=== PATIENT | male | born 1960 | race Caucasian/White ===

== ENCOUNTER 2019-10-25 15:58 | Outpatient (CLI) | payer SELFPAY | END 2019-10-25 15:59 | disposition home or self-care (01) | LOC: SPT 15:58 | PROVIDERS: Visit Provider Orthopaedic Surgery | DX: Z46.89 Encounter for fitting and adjustment of other specified devices (principal); S52.501D Unspecified fracture of the lower end of right radius, subsequent encounter for closed fracture with routine healing; X58.XXXD Exposure to other specified factors, subsequent encounter | CPT/HCPCS: L3908 ==

== ENCOUNTER 2024-06-20 11:52 | Inpatient (IN) | payer SELFPAY ==
[2024-06-20] VITALS (38 sets, daily range): BP systolic 93–143; BP diastolic 64–91; PULSE 58–87; RESP 14–25; TEMP 36.3–37; O2SAT 94–100; BMI 27.4
--- NOTE | 2024-06-20 12:00 | ECG_ITS ---
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1960 Requested By: Fransisco Booth Order Number: [id number] Reading MD: KATLIN ALBERTO Measurements Intervals [place] Rate: 63 P: 39 ME: 148 QRS: 25 QRSD: 89 T: -26 QT: 393 QTc: 404 Interpretive Statements SINUS RHYTHM WITH OCCASIONAL SUPRAVENTRICULAR PREMATURE COMPLEXES INFERIOR MYOCARDIAL INFARCTION , PROBABLY RECENT [40+ ms Q WAVE AND/OR ST/T ABNORMALITY IN II/aVF] ACUTE OK INTERPRETATION BASED ON A DEFAULT AGE OF 40 YEARS No previous ECG available for comparison Electronically Signed On 06-27-2024 21:03:00 CDT by KATLIN ALBERTO [email or web address]
--- NOTE | 2024-06-20 12:04 | XR_ITS ---
WS: [id number] Exam: XR chest 1V portable [id number] Date/Time of Exam: 06/20/2024 12:35 PM Reason For Exam: Chest pain Lungs are clear. Normal cardiomediastinal silhouette. Bony structures are intact. No pleural effusion. Monitoring leads superimpose the chest. XR/XR chest 1V portable [id number] IMPRESSION: 1. Negative chest.
[2024-06-20] MEDS: clopidogrel 300 mg Tablet 600 MG PO (12:10)
[2024-06-20] MEDS: heparin 5,000 unit/mL INJ 1 mL 4000 UNIT IVP (12:10)
[2024-06-20] MEDS: aspirin 325 mg Tablet PO (12:10)
--- NOTE | 2024-06-20 12:16 | ED_ITS ---
HPI - Chest Pain 2 General: Stated Complaint: cp pain and arm pain Time Seen by Provider: 06/20/24 12:03 History of Present Illness: 63-year-old male presents to the emergen cy room with complaint of severe central substernal chest pain radiating to his right arm. He was at rest when this began. He states he has had several episodes like this in the last month that usually resolve spontaneously this 1 began a few hours ago and is persisting. Patient has no known coronary artery disease he is not diabetic does not smoke. No previous evaluation for coronary artery disease. Associated symptoms: Reports diaphoresis and dyspnea; Deny abdominal pain or fever(s) Related Data Allergies Allergy/AdvReac Type Severity Reaction Status Date / Time No Known Allergies Allergy Verified 06/20/24 12:18 Review of Systems 2 Const: Reports: malaise and diaphoresis; Denies: fever(s) or chills Card: Reports: chest pain Resp: Reports: dyspnea GI: Denies: abdominal pain : Denies: dysuria, urinary frequency or urinary urgency Musc: Denies: neck pain or back pain Skin/Breast: Denies: rash Physical Exam 2 Const: GENERAL APPEARANCE: cooperative ORIENTATION/CONSCIOUSNESS: Yes awake, Yes oriented to person, Yes oriented to place and Yes oriented to time HENMT: COMMON NORMALS: normocephalic, atraumatic and hearing grossly normal bilaterally HEAD & SCALP: normocephalic and atraumatic Resp: COMMON NORMALS: normal respiratory effort, No retractions, No use of accessory muscles and clear to auscultation bilaterally AUSCULTATION: clear to auscultation bilaterally Cardio: COMMON NORMALS: regular rate, regular rhythm and No murmurs present (Cardio) RATE: regular rate RHYTHM: regular rhythm GI: COMMON NORMALS: Soft to palpation and No hepatosplenomegaly present A USCULTATION: Yes normoactive bowel sounds PALPATION: Yes Soft to palpation, No Tenderness to palpation present (GI), No Guarding due to palpation present (GI) and Yes No hepatosplenomegaly present Extremity: COMMON NORMALS: normal to inspection, capillary refill normal, no clubbing, cyanosis or edema, no calf tenderness and no pedal edema Neuro: SENSORIUM/ORIENTATION: Yes oriented to person, Yes oriented to place and Yes oriented to time Skin: COMMON NORMALS: no rashes or lesions noted GENERAL SKIN EXAM: no rashes or lesions noted MDM - Chest Pain Medical Decision Making EKG shows acute inferior STEMI with some lateral changes at elevation of ST segments in V4 5 and 6 as well as 2 3 and aVF. STEMI was called immediately upon reviewing the EKG patient brought to the room. He is still actively having chest pain shortly after he arrived however still establishing IV access and getting his initial medications including aspirin Plavix and heparin Dr. Ball arrived he concurs with the interpretation of the EKG patient was taken directly to the Cash Processing Specialist. Medical Records I reviewed the patient's medical records. Lab Data I reviewed the patient's lab results. 06/20/24 12:12 06/20/24 12:12 XR interpretation done by ED provider, pending radiology final review (Chest x- ray ordered but not performed will be performed later in visit) Discharge Plan Discharge Patient Disposition: Admitted As Inpatient Clinical Impression: Subsequent ST elevation (STEMI) myocardial infarction of inferior wall Condition: Stable Print Language: Colombian Coding Level of Care Code ED Chief Of Safety And Protection for Morgan Franklin
[2024-06-20 12:19] LABS: Basophils # 0.1 10^3/uL (0.0-0.1); Basophils % 0.4 %; Eosinophils # 0.3 10^3/uL (0.0-0.8); Eosinophils % 1.4 %; Hematocrit 45.8 % (37-53); Lymphocytes # 2.5 10^3/uL (0.8-4.8); Lymphocytes % 11.6 %; Mean Corpuscular HGB Conc 33.4 g/dL (30-55); Mean Corpuscular Hemoglobin 29.2 pg (27-33); Mean Corpuscular Volume 87.4 fl (82-101); Mean Platelet Volume 9.8 fL (7.4-10.4); Monocytes # 1.1 10^3/uL (0.2-0.9); Monocytes % 5.1 %; Neutrophils # 17.43 10^3/uL (1.8-7.7); Nucleated Red Blood Cells % 0 %; Platelet Count 331 10^3/cmm (157-399); Red Blood Count 5.24 10^6/uL (3.85-5.65); Red Cell Distribution Width 12.7 % (12.1-15.1)
[2024-06-20 12:35] LABS: Alanine Aminotransferase 15 U/L (0-41); Albumin Level 4.8 g/dL (3.5-5.2); Alkaline Phosphatase 62 U/L (40-130); Anion Gap 15.2 (5-19); Aspartate Amino Transferase 18 U/L (0-40); Blood Urea Nitrogen 11 mg/dL (8-23); Calcium 9.4 mg/dL (8.5-10.5); Carbon Dioxide 26 mmol/L (22-29); Chloride 99 mmol/L (98-107); Globulin 3.4 g/dL (1.3-4.6); Glomerular Filtration Rate 85.8 mL/min (90-130); Glucose 124 mg/dL (65-115); Osmolality Calculated 283 mOsm/kg (285-295); Potassium 4.2 mmol/L (3.5-5.1); Sodium 136 mmol/L (136-145); Total Bilirubin 0.4 mg/dL (0.15-1.2); Total Protein 8.2 g/dL (6.6-8.7)
--- NOTE | 2024-06-20 13:04 | PC.NURSE ---
PT taken to brick and blocker aid labor @[id number]
--- NOTE | 2024-06-20 13:09 | P.HP_ITS ---
<Statement entered by Kian Ball M.D - 06/22/24 08:06> Patient was evaluated and cared for in conjunction with an advanced practice practitioner.? I personally examined the patient and reviewed the chart and all pertinent data including imaging, telemetry, and laboratory results.? I discussed the patient in detail with the advanced practice practitioner.? Please see? their note for complete H&P, testing results and agreed upon plan of care for the patient. Patient has presented with a STEMI and going for emergent cardiac catheterization. GENERAL: Patient is alert, awake and oriented x3. HEART: Regular S1 and S2 LUNGS: Clear to auscultate bilaterally. CENTRAL NERVOUS SYSTEM: Grossly nonfocal. EXTREMITIES: Lower extremities with out edema bilaterally. Providers/Chief Complaint 2 Admitting Physician: Dr. Ball Chief Complaint: cp pain and arm pain History of Present Illness Laz Good is a 63 year old male who has no known cardiac history, no diabetes or hypertension per patient, never smoker, and does not take medications at home. He states he does not ever go to the doctor. He came to the ER today with complaints of severe central substernal chest pain that was radiating to his right arm. He stated at the time he had nausea, vomiting, and severe sweating with this. He states this had been going on for at least a month, but the pain would go away at that time. He attributed this pain at the time to anxiety. He stated that he came in because the pain started a few hours prior to arrival and was persisting. EKG showed acute inferior wall STEMI. STEMI was called immediately. He was taken to the slab puller and underwent stenting of the RCA. BLood pressure were low, so he was placed on Levophed drip. He will need to be transferred to the ICU for this. He received Plavix 600 mg, aspirin, heparin bolus prior to being taken to the slab puller. Review of Systems 2 Narrative: CONSTITUTIONAL: No fever chills weight loss or gain or night sweats. HEENT: Normocephalic, atraumatic. RESPIRATORY: No cough, sputum, hemoptysis or wheezing. CARDIOVASCULAR: No shortness of breath, reported chest pain at the center of his chest radiating to the right arm at this time post cath still has chest pressure at the center of his chest, he had this during the cath and after, denies PND, orthopnea, lower extremity edema, presyncope or syncope. GI: no nausea vomiting diarrhea. MANAGER COSMETIC: No numbness, tingling, weakness or loss of function in any part of the body. MUSCULOSKELETAL: Denies any issues. Medications/Allergies Home Medications ?Medication ?Instructions ?Recorded ?Confirmed ?Last Taken ?Type Unable to Assess 06/20/24 06/20/24 Unkn own History Allergies Allergy/AdvReac Type Severity Reaction Status Date / Time No Known Allergies Allergy Verified 06/20/24 12:18 Vitals/I&O/Wt Last Vital Signs Temp 97.3 F L 06/20/24 11:55 Pulse 74 06/20/24 11:55 BP 143/89 06/20/24 11:55 Pulse Ox 100 06/20/24 11:55 O2 Del Method Room Air 06/20/24 11:55 Weight last 48 hrs Weight 174 lb Physical Exam 2 Narrative: General: No apparent distress, healthy appearing, well nourished HENMT: normoceophalic Neck: No carotid bruit bilaterally Muskuloskeletal: Full ROM Respiratory: Normal respiratory effort, clear to auscultation bilaterally throughout all lung [place], no use of accessory muscles Cardio: No JVD, regular rate, regular rhythm, S1 S2 normal, no murmurs, peripheral pulses 2+ radial on the left, TR band on the right w/o evidence of bleeding or hematoma GI: Normal to inspection, nondistended Extremities: Full ROM, normal, normal capillary refill, no cyanosis or edema Neuro: Alert and oriented x4, no focal motor deficits Psych: Affect normal, mental status grossly normal Skin: radial cath site clean, dry, intact w/o s/s of hematoma or bleeding Data 06/20/24 12:12 06/20/24 12:12 A&P Assessment and plan (1) Subsequent ST elevation (STEMI) myocardial infarction of inferior wall: Plan Patient taken to the slab puller for acute inferior wall STEMI. He received stenting to the RCA which is the culprit lesion. He will be transferred to the ICU due to patient is hypotensive requiring Levophed administration. Continue aspirin Plavix tomorrow with high-dose statin therapy add atorvastatin 80 mg. Echo complete will be ordered. PDMP PDMP Reviewed: Not Reviewed Attestations 2 Medical Necessity Statement*: Patient stay expected to cross 2 midnights due to acute inferior STEMI requiring stenting to the RCA, levo for blood pressure support. Coding Level of Care Code Acute Code for Chg Fwd Diagnoses Subsequent ST elevation (STEMI) myocardial infarction of inferior wall I22.1
--- NOTE | 2024-06-20 13:41 | W.PM.OPSUD ---
Surgery/Procedure H&P Update DATE OF PROCEDURE: June 20, 2024 DATE H&P PERFORMED: 06/20/24 H&P UPDATE INFORMATION: I have reviewed H&P completed within last 30 days, I have examined patient prior to procedure and No changes to prior documentation PREOP DIAGNOSIS: STEMI PRIMARY INDICATION FOR PROCEDURE: STEMI PLANNED PROCEDURE: Operation Date: 06/20/24 12:25 Proposed Procedures p Cardiac Catheterization(Not Applicable) - Kian Ball M.D Percutaneous coronary intervention PATIENT REASSESSED PRIOR TO SEDATION, WITH NO CHANGE NOTED: Yes PHYSICAL EXAM: alert, oriented x 3, clear to auscultation bilaterally and regular rate & rhythm AIRWAY EVAL/ANESTHESIA PLAN: normal airway, ASA III, Local Anesthesia, Risks, benefits & alternatives of sedation and/or procedure discussed and Patient agrees to continue as planned ADDITIONAL INFORMATION: Moderate sedation
--- NOTE | 2024-06-20 13:42 | PC.NURSE ---
received pt from grinding and polishing laborer post [facility]. pt alert and oriented x4. pt does complain of pain- 8 out of 10. pt educated on the pain potential from the procedure. pt stated understanding. tr band on right wrist with no hematoma or bruising on arrival. pt awaiting transfer to icu. pt educated on restrictions of right wrist. pt stated understanding. will continue to evaluate pt per protocol.
--- NOTE | 2024-06-20 13:42 | PM.PROC ---
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 RCA has severe stenosis in the proximal vessel with plaque rupture. Thrombotic occlusion of distal vessel. Underwent successful revascularization with 1 stent from proximal to mid RCA. Balloon angioplasty of the distal vessel done. Had distal embolization of thrombus. We will continue with aspirin and Plavix. We will continue with Aggrastat for 6 to 8 hours. High intensity statin therapy. Currently requiring Levophed. However blood pressure is improving. Will wean off as able in the ICU. Performing Provider: Kian Ball Estimated blood loss (mL): 10 Complications: None Condition: critical Disposition: ICU Coding Level of Care Code Acute Code for Morgan Franklin
[2024-06-20] MEDS: tirofiban 5 MG/100 ML PREMIX 14.3 MG IV ×2 (14:00→16:19)
[2024-06-20] MEDS: norepinephrine 4 MG/250 ML BAG 30 MG IV (15:35)
--- NOTE | 2024-06-20 16:06 | USCV_ITS ---
Laz Good Age: 63 Gender: M : 1960 Exam Date: 06/20/2024 20:05 Ordering Phys: Leona Smith NP Technologist: PREM [place] [facility] [place]: [place] BP: 128 / 84 HR: 62 Rhythm: Sinus Technical Quality: Adequate MEASUREMENTS (Male / Female) Normal Values 2D ECHO LV Diastolic Diameter PLAX 3.3 cm 4.2 - 5.9 / 3.9 - 5.3 cm IVS Diastolic Thickness 1.2 cm 0.6 - 1.0 / 0.6 - 0.9 cm IVS Systolic Thickness 1.6 cm LVPW Diastolic Thickness 1.1 cm 0.6 - 1.0 / 0.6 - 0.9 cm LVPW Systolic Thickness 1.3 cm LVOT Diameter 1.7 cm LV Ejection Fraction 2D Teich 40.8 % LV Ejection Fraction MOD 4C 42.1 % LV Ejection Fraction MOD 2C 68.9 % LV Ejection Fraction 2C AL 70.4 % LA Diameter 3.2 cm Aorta at Sinotubular Diameter 2.6 cm IVC Diameter 2.0 cm M-MODE LA Ao Ratio MM 1.2 AV Cusp Separation MM 2.0 cm DOPPLER AV Peak Velocity 143.0 cm/s LVOT Peak Velocity 139.0 cm/s AV Area Cont Eq vti 1.9 cm squared AV Area Cont Eq pk 2.1 cm squared MV Peak Velocity 79.0 cm/s MV Area PHT 5.3 cm squared Mitral E to A Ratio 1.1 TR Peak Velocity 170.0 cm/s TR Peak Gradient 11.6 mmHg TV Peak E Velocity 40.0 cm/s PV Peak Velocity 89.0 cm/s FINDINGS Left Ventricle Normal left ventricular size and systolic function, EF 50%, visual. Diffuse hypokinesia of the inferolateral wall segment Right Ventricle The right ventricle is normal in size and function. Right Atrium The right atrium is normal in size. Left Atrium The left atrium is normal in size. Mitral Valve Mild mitral valve regurgitation. Aortic Valve Minimally thickened aortic valve Tricuspid Valve Trace tricuspid valve regurgitation. Estimated pulmonary artery peak systolic pressure within normal limits Pulmonic Valve No gross abnormalities noted Pericardium Normal pericardium without effusion. Aorta Normal ascending aorta dimension. IVC Normal IVC dimension with <50% respiratory change of the inferior vena cava. CONCLUSIONS Normal left ventricular size and systolic function, EF 50%, visual. Diffuse hypokinesia of the inferolateral wall segment. Mild mitral valve regurgitation. Minimally thickened aortic valve. Trace tricuspid valve regurgitation. Estimated pulmonary artery peak systolic pressure within normal limits. There is no pericardial effusion. There are no intracardiac masses. No similar previous studies are available for comparison Dr Dileep Thao MD FACC (Electronically Signed) Final Date: 21 June 2024 13:29 S
[2024-06-20 16:34] LABS: Chol HDL Ratio 5.24 mg/dL (1.0-5.00); Cholesterol 241 mg/dL (0-200); HDL Cholesterol 46 mg/dL (60-100); LDL Cholesterol Calculated 160 mg/dL (50-129); LDL HDL Ratio 3.48 RATIO (0.00-3.22); Triglycerides 177 mg/dL (0-150)
[2024-06-20 16:39] LABS: Estmated Average Glucose 123; Hemoglobin A1C 5.9 % (4.0-6.0)
--- NOTE | 2024-06-20 19:00 | PC.NURSE ---
TR band removed. Slight bruising noted in area. No hematoma or bleeding noted. Bioclusive dressing applied. Pt tolerated well.
[2024-06-20] MEDS: atorvastatin 40 mg Tablet 80 MG PO (21:09)
[2024-06-21] VITALS (97 sets, daily range): BP systolic 76–137; BP diastolic 42–85; PULSE 54–79; RESP 7–31; TEMP 36.6–37; O2SAT 92–97
[2024-06-21 00:30] LABS: Potassium 4.2 mmol/L (3.5-5.1)
[2024-06-21] MEDS: norepinephrine 4 MG/250 ML BAG 7.5 MG IV (02:14)
[2024-06-21 06:26] LABS: Alanine Aminotransferase 47 U/L (0-41); Albumin Level 3.9 g/dL (3.5-5.2); Alkaline Phosphatase 49 U/L (40-130); Anion Gap 17.1 (5-19); Aspartate Amino Transferase 197 U/L (0-40); Blood Urea Nitrogen 12 mg/dL (8-23); Calcium 8.4 mg/dL (8.5-10.5); Carbon Dioxide 23 mmol/L (22-29); Chloride 104 mmol/L (98-107); Creatinine Clr Calc Pharmacy 97.9924; Globulin 2.8 g/dL (1.3-4.6); Glomerular Filtration Rate 98.3 mL/min (90-130); Glucose 113 mg/dL (65-115); Osmolality Calculated 291 mOsm/kg (285-295); Potassium 4.1 mmol/L (3.5-5.1); Sodium 140 mmol/L (136-145); Total Bilirubin 0.7 mg/dL (0.15-1.2); Total Protein 6.7 g/dL (6.6-8.7)
[2024-06-21] MEDS: clopidogrel 75 mg Tablet PO (08:12)
[2024-06-21] MEDS: aspirin 81 mg EC Tablet PO (08:12)
[2024-06-21 08:28] LABS: Troponin T (5th) Once 5704 ng/L (0-15)
--- NOTE | 2024-06-21 09:24 | P.PN_ITS ---
<Statement entered by Kian Ball M.D - 06/22/24 08:10> Patient was evaluated and cared for in conjunction with an advanced practice practitioner.? I personally examined the patient and reviewed the chart and all pertinent data including imaging, telemetry, and laboratory results.? I discussed the patient in detail with the advanced practice practitioner.? Please see? their note for complete progress note, testing results and agreed upon plan of care for the patient. Chest pain-free. He is off of Levophed. Will observe patient in the hospital. If blood pressure improves, can consider low-dose beta-megha. Continue aspirin and Plavix. Continue high intensity statin therapy. GENERAL: Patient is alert, awake and oriented x3. HEART: Regular S1 and S2 LUNGS: Clear to auscultate bilaterally. CENTRAL NERVOUS SYSTEM: Grossly nonfocal. EXTREMITIES: Lower extremities with out edema bilaterally. Subjective 2 Subjective: Patient is doing well this morning. He denies any chest pain at this time. He did have about a 19 run of V. tach at 8 PM last night. He is currently off of the Levophed. Blood pressure on my assessment was 99/65 heart rate of 56. Echo was performed but official readings are not back yet. He continues aspirin and Plavix as well as high-dose atorvastatin. Vitals/I&O/Wt Last Vital Signs Temp 97.9 F 06/21/24 04:00 Pulse 56 L 06/21/24 06:00 Resp 21 H 06/21/24 06:00 BP 99/65 06/21/24 05:00 Pulse Ox 94 06/21/24 06:00 O2 Del Method Room Air 06/21/24 06:00 06/20/24 06/21/24 06/21/24 22:59 06:59 14:59 Intake Total 228.938 / 228.938 251.187 / 480.125 Balance 228.938 / 228.938 251.187 / 480.125 Weight last 48 hrs Weight 174 lb 2.643 oz Weight 175 lb 3.2 oz Weight 174 lb Physical Exam 2 Narrative: General: No apparent distress, healthy appearing, well nourished HENMT: normoceophalic Muskuloskeletal: Full ROM Respiratory: Normal respiratory effort, clear to auscultation bilaterally throughout all lung [place], no use of accessory muscles Cardio: No JVD, regular rate, regular rhythm, S1 S2 normal, no murmurs, peripheral pulses 2+ radial on the left, 2+ radial on the right GI: Normal to inspection, nondistended Extremities: Full ROM, normal, normal capillary refill, no cyanosis or edema Neuro: Alert and oriented x4, no focal motor deficits Psych: Affect normal, mental status grossly normal Skin: radial cath site clean, dry, intact w/o s/s of hematoma or bleeding Data 06/20/24 12:12 06/21/24 04:44 A&P Assessment and plan (1) Subsequent ST elevation (STEMI) myocardial infarction of inferior wall: Plan Patient s/p stenting to the RCA. We will continue to watch him in the ICU for hypotension or arrhythmias. Will check back around noon, and if patient can tolerate, will add low dose beta megha. Continue aspirin Plavix with high-dose statin therapy add atorvastatin 80 mg. Echo complete done but not officially read. PDMP PDMP Reviewed: Not Reviewed Attestations 2 Medical Necessity Statement*: Patient stay expected to cross 2 midnights due to the above defined care. Coding Level of Care Code Acute Code for Chg Fwd Diagnoses Subsequent ST elevation (STEMI) myocardial infarction of inferior wall I22.1
[2024-06-21] MEDS: atorvastatin 40 mg Tablet 80 MG PO (20:56)
[2024-06-22] VITALS (43 sets, daily range): BP systolic 81–126; BP diastolic 48–74; PULSE 59–86; RESP 17–25; TEMP 36.8; O2SAT 92–96
[2024-06-22 08:13] LABS: Basophils % 0.4 %; Eosinophils # 0.1 10^3/uL (0.0-0.8); Eosinophils % 1.3 %; Hematocrit 40.7 % (37-53); Lymphocytes # 1.8 10^3/uL (0.8-4.8); Lymphocytes % 17.8 %; Mean Corpuscular HGB Conc 32.4 g/dL (30-55); Mean Corpuscular Hemoglobin 28.8 pg (27-33); Mean Corpuscular Volume 88.9 fl (82-101); Mean Platelet Volume 10.1 fL (7.4-10.4); Monocytes % 9.3 %; Neutrophils # 7.21 10^3/uL (1.8-7.7); Neutrophils % 70.8 %; Nucleated Red Blood Cells % 0 %; Platelet Count 236 10^3/cmm (157-399); Red Blood Count 4.58 10^6/uL (3.85-5.65); Red Cell Distribution Width 13.1 % (12.1-15.1); White Blood Count 10.18 10^3/uL (3.29-11.43)
[2024-06-22 08:32] LABS: Anion Gap 13.5 (5-19); Blood Urea Nitrogen 13 mg/dL (8-23); Calcium 8.7 mg/dL (8.5-10.5); Carbon Dioxide 25 mmol/L (22-29); Chloride 103 mmol/L (98-107); Creatinine Clr Calc Pharmacy 97.4202; Glomerular Filtration Rate 98.3 mL/min (90-130); Glucose 90 mg/dL (65-115); Osmolality Calculated 284 mOsm/kg (285-295); Potassium 4.5 mmol/L (3.5-5.1); Sodium 137 mmol/L (136-145)
--- NOTE | 2024-06-22 09:19 | PM.DCS ---
Discharge Providers Date of Admission: 06/20/24 13:54 Date of Discharge: June 22, 2024 Attending Provider at Admission: Kian Ball M.D Attending Provider at Discharge: Kian Ball M.D Diagnoses at Discharge Discharge Diagnosis (1) Subsequent ST elevation (STEMI) myocardial infarction of inferior wall: Status: Acute Reason for Visit Reason for Visit: cp pain and arm pain Brief History: Laz Good is a 63 year old male who has no known cardiac history, no diabetes or hypertension per patient, never smoker, and does not take medications at home. He states he does not ever go to the doctor. He came to the ER today with complaints of severe central substernal chest pain that was radiating to his right arm. He stated at the time he had nausea, vomiting, and severe sweating with this. He states this had been going on for at least a month, but the pain would go away at that time. He attributed this pain at the time to anxiety. He stated that he came in because the pain started a few hours prior to arrival and was persisting. EKG showed acute inferior wall STEMI. STEMI was called immediately. He was taken to the radiographer cardiac catheterization and underwent stenting of the RCA. BLood pressure were low, so he was placed on Levophed drip. He will need to be transferred to the ICU for this. He received Plavix 600 mg, aspirin, heparin bolus prior to being taken to the radiographer cardiac catheterization. Hospital Course Hospital Course He was taken to the radiographer cardiac catheterization. 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 RCA has severe stenosis in the proximal vessel with plaque rupture. Thrombotic occlusion of distal vessel. Underwent successful revascularization with 1 stent from proximal to mid RCA. Balloon angioplasty of the distal vessel done. Had distal embolization of thrombus. He was placed on Levophed drip temporarily for hypotension. This resolved prior to discharge. Echo was done that showed EF of 50% with diffuse hypokinesia of the inferolateral wall segment. Patient did have a couple of episodes of nonsustained VTAC. He denies cheat pain on discharge. He will be going home in stable to improved condition. Physical Exam Narrative: General: No apparent distress, healthy appearing, well nourished HENMT: normoceophalic Muskuloskeletal: Full ROM Respiratory: Normal respiratory effort, clear to auscultation bilaterally throughout all lung [place], no use of accessory muscles Cardio: No JVD, regular rate, regular rhythm, S1 S2 normal, no murmurs, peripheral pulses 2+ radial on the left, 2+ radial on the right GI: Normal to inspection, nondistended Extremities: Full ROM, normal, normal capillary refill, no cyanosis or edema Neuro: Alert and oriented x4, no focal motor deficits Psych: Affect normal, mental status grossly normal Skin: radial cath site clean, dry, intact w/o s/s of hematoma or bleeding Discharge Data Studies Completed and Pending Completed Studies During Hospitalization Category Date Time Status XR chest 1V portable [id number] Stat Exams 06/20/24 12:04 Completed CV. echo complete* [id number] Routine Ultrasound 06/20/24 16:06 Completed Pending at discharge Category Date Time Status [employer] [facility] request for service Stat Exams 06/20/24 12:11 Taken Radiology Impressions Chest X-Ray 06/20/24 12:04 IMPRESSION: 1. Negative chest. Laboratory Results WBC 10.18 10^3/uL (3.29-11.43) 06/22/24 08:07 RBC 4.58 10^6/uL (3.85-5.65) 06/22/24 08:07 Hgb 13.20 g/dL (11.27-16.99) 06/22/24 08:07 Hct 40.7 % (37-53) 06/22/24 08:07 MCV 88.9 fl (82-101) 06/22/24 08:07 MCH 28.8 pg (27-33) 06/22/24 08:07 MCHC 32.4 g/dL (30-55) 06/22/24 08:07 RDW 13.1 % (12.1-15.1) 06/22/24 08:07 Plt Count 236 10^3/cmm (157-399) 06/22/24 08:07 MPV 10.1 fL (7.4-10.4) 06/22/24 08:07 Neut % (Auto) 70.8 % 06/22/24 08:07 Lymph % (Auto) 17.8 % 06/22/24 08:07 Routt % (Auto) 9.3 % 06/22/24 08:07 Eos % (Auto) 1.3 % 06/22/24 08:07 Baso % (Auto) 0.4 % 06/22/24 08:07 Neut # (Auto) 7.21 10^3/uL (1.8-7.7) 06/22/24 08:07 Lymph # (Auto) 1.8 10^3/uL (0.8-4.8) 06/22/24 08:07 Routt # (Auto) 1.0 10^3/uL (0.2-0.9) H 06/22/24 08:07 Eos # (Auto) 0.1 10^3/uL (0.0-0.8) 06/22/24 08:07 Baso # (Auto) 0.0 10^3/uL (0.0-0.1) 06/22/24 08:07 Nucleated RBC % (auto) 0 % 06/22/24 08:07 Nucleated RBCs # 0.0 /100WBC 06/22/24 08:07 Sodium 137 mmol/L (136-145) 06/22/24 08:07 Potassium 4.5 mmol/L (3.5-5.1) 06/22/24 08:07 Chloride 103 mmol/L (98-107) 06/22/24 08:07 Carbon Dioxide 25 mmol/L (22-29) 06/22/24 08:07 Anion Gap 13.5 (5-19) 06/22/24 08:07 BUN 13 mg/dL (8-23) 06/22/24 08:07 Creatinine 0.8 mg/dL (0.7-1.2) 06/22/24 08:07 GFR Calculation 98.3 mL/min (90-130) 06/22/24 08:07 Glucose 90 mg/dL (65-115) 06/22/24 08:07 Estimat Average Glucose 123 06/20/24 12:12 Hemoglobin A1c 5.9 % (4.0-6.0) 06/20/24 12:12 Calculated Osmolality 284 mOsm/kg (285-295) L 06/22/24 08:07 Calcium 8.7 mg/dL (8.5-10.5) 06/22/24 08:07 Magnesium 2.0 mg/dL (1.7-2.3) 06/21/24 00:00 Total Bilirubin 0.7 mg/dL (0.15-1.2) 06/21/24 04:44 AST 197 U/L (0-40) H 06/21/24 04:44 ALT 47 U/L (0-41) H 06/21/24 04:44 Alkaline Phosphatase 49 U/L (40-130) 06/21/24 04:44 Troponin T 5th Gen ng/L 5704 ng/L (0-15) H* 06/21/24 04:44 Total Protein 6.7 g/dL (6.6-8.7) 06/21/24 04:44 Albumin 3.9 g/dL (3.5-5.2) 06/21/24 04:44 Globulin 2.8 g/dL (1.3-4.6) 06/21/24 04:44 Triglycerides 177 mg/dL (0-150) H 06/20/24 12:12 Cholesterol 241 mg/dL (0-200) H 06/20/24 12:12 LDL Cholesterol, Calc 160 mg/dL (50-129) H 06/20/24 12:12 HDL Cholesterol 46 mg/dL (60-100) L 06/20/24 12:12 LDL/HDL Ratio 3.48 RATIO (0.00-3.22) H 06/20/24 12:12 Cholesterol/HDL Ratio 5.24 mg/dL (1.0-5.00) H 06/20/24 12:12 Procedures Performed Date of procedure: 06/20/24 Pre-procedure diagnosis: STEMI Post-procedure diagnosis: other (Thrombotic occlusion of RCA s/p PCI with 1 stent) Procedure: Your manometry shows mild to moderate distal disease. 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 RCA has severe stenosis in the proximal vessel with plaque rupture. Thrombotic occlusion of distal vessel. Underwent successful revascularization with 1 stent from proximal to mid RCA. Balloon angioplasty of the distal vessel done. Had distal embolization of thrombus. We will continue with aspirin and Plavix. We will continue with Aggrastat for 6 to 8 hours. High intensity statin therapy. Currently requiring Levophed. However blood pressure is improving. Will wean off as able in the ICU. Performing Provider: Kian Ball Estimated blood loss (mL): 10 Complications: None Condition: critical Disposition: ICU Vitals Last Vital Signs Temp 98.2 F 06/22/24 04:15 Pulse 73 06/22/24 08:30 Resp 19 H 06/22/24 08:30 BP 109/67 04/23/25 08:30 Pulse Ox 96 06/22/24 08:30 O2 Del Method Room Air 06/22/24 08:30 Discharge Plan Discharge Patient Disposition: Home Condition: Stable Prescriptions: New atorvastatin 40 mg Tablet 80 mg PO BEDTIME Qty: 30 0RF clopidogrel 75 mg Tablet 75 mg PO DAILY Qty: 90 3RF aspirin 81 mg Tablet,Delayed Release (Dr/Ec) 81 mg PO DAILY Qty: 90 3RF metoprolol succinate 25 mg capsule,sprinkle,ER 24hr 12.5 mg PO DAILY Qty: 30 0RF Discharge Orders: Discharge Order (Routine); Ordered 06/22/24 Ordered By: Leona Smith Referrals: Alfreda Cam FNP [Nurse Practitioner] - 7-10 days Discharge Diet: Cardiac Discharge Activity: Increase activity as tolerated and Limit activity as instructed Patient Instructions: Heart Healthy Diet, Coronary Intravascular Stent Placement (DC), Opioid Safety Activity Restrictions/Additional Instructions: Discussed with patient no heavy lifting more than a gallon of milk for 3 days. Monitor for and report signs or symptoms of bleeding. Monitor for and report s/s of infection such as fever 101 or greater, swelling, redness or pain to the wrist. Patient will be discharged on aspirin and plavix. Needs to stay on these for at least 1 year. Will start low dose beta megha. Patient was instructed to hold beta megha if bp starts to get below 90s systolic and notify us immediately. Will continue high dose statin therapy as well. F/U in the clinic in 1 week for site check and labwork. Plan of Treatment: As stated above. Discharge Attestations Time Spent in Discharge Care*: less than 30 min Quality Metrics Clinical Quality Measures [ No reported AMI, CVA or VTE this stay] Coding Level of Care Code Acute Code for Chg Fwd Diagnoses Subsequent ST elevation (STEMI) myocardial infarction of inferior wall I22.1
[2024-06-22] MEDS: clopidogrel 75 mg Tablet PO (09:31)
[2024-06-22] MEDS: aspirin 81 mg EC Tablet PO (09:31)
--- NOTE | 2024-06-22 11:02 | PC.NURSE ---
Discharge instruction given to patient and , prescriptions to sent to pharmacy, IVs removed. Patient and have no further questions.
--- NOTE | 2024-06-22 11:07 | PC.NURSE ---
[id number] patient, , and 2 sons ambulated to front entrance and accompanied by this nurse.
== END 2024-06-22 10:55 | disposition home or self-care (01) | DRG 322 ==
LOC: ER 12:20 → CCL 12:23 → ICU 13:54
PROVIDERS: Internal Medicine; Nurse Practitioner Family; Admitting Provider Internal Medicine; Emergency Provider Family Medicine; Visit Provider Internal Medicine
DX: I21.19 ST elevation (STEMI) myocardial infarction involving other coronary artery of inferior wall (principal); I47.29 Other ventricular tachycardia; I95.9 Hypotension, unspecified
CPT/HCPCS: 36415; 71045; 80048; 80053; 80061; 83036; 83735; 84132; 84484; 85025; 85347; 92978; 93005; 93306; 93458; 96374; 96375; 96376; 99152; 99153; 99285; C1725; C1753; C1769; C1874; C1887; C1894; C9600; J0461; J1644; J2250; J2371; J2405; J3010; J3490; J7030; J9999; Q9967

== ENCOUNTER → 2024-07-05 13:09 | Outpatient (BNVA) | payer SELFPAY | PROVIDERS: Visit Provider Nurse Practitioner Family | DX: Z12.5 Encounter for screening for malignant neoplasm of prostate (principal); I21.3 ST elevation (STEMI) myocardial infarction of unspecified site | CPT/HCPCS: 80053; 85025; G0103 ==

== ENCOUNTER → 2024-09-14 09:47 | Outpatient (BNVA) | payer MEDICAID, SELFPAY | PROVIDERS: PCP Nurse Practitioner Family; Visit Provider Nurse Practitioner Family | DX: I25.10 Atherosclerotic heart disease of native coronary artery without angina pectoris (principal); Z79.02 Long term (current) use of antithrombotics/antiplatelets; Z79.82 Long term (current) use of aspirin; Z95.5 Presence of coronary angioplasty implant and graft; I25.2 Old myocardial infarction; R73.03 Prediabetes; Z12.5 Encounter for screening for malignant neoplasm of prostate | CPT/HCPCS: 99213 ==